=== PATIENT | female | born 1990 | race Caucasian/White ===

== ENCOUNTER → 2019-08-25 | Outpatient (CLI) | payer BC ==
[~2019-08-25] MED LIST: FLUC100 PO; HYDACE25S; PHENA200 PO; PREN-16 PO; Papaya Enzyme1 EAC1 PO; SULTRIDS PO; [UNRECOGNIZED DRUG - OTHER]
[2019-08-25 09:47] LABS: Bilirubin, Urine Neg (Neg); Blood, Urine 1+ (Neg); Glucose Qualitative, Urine Neg (Neg); Ketones, Urine 4+ (Neg); Leukocyte Esterase, Urine Neg (Neg); Nitrite, Urine Neg (Neg); Protein, Urine 1+ (Neg); Specific Gravity, Urine 1.025 (1.003-1.022); Urobilinogen, Urine NORM (Normal)
[2019-08-25 09:53] LABS: Appearance, Urine Cloudy (Clear); Bacteria Not Seen /hpf; Color, Urine Yellow (P-Yellow); Red Blood Cells, Urine 0-2 /hpf (0-2); Squamous Epithelial Cells Not Seen /hpf (Few); White Blood Cells, Urine Not Seen /hpf (0-5)
[2019-08-25 09:54] LABS: Amorphous Heavy (0-Heavy)
== END | disposition home or self-care (01) ==
LOC: LAB 06:30 → LAB SHORT 06:30
PROVIDERS: Physician Assistant
DX: N39.0 Urinary tract infection, site not specified (principal)
CPT/HCPCS: 81001; 87086

== ENCOUNTER → 2022-07-05 | Outpatient (CLI) | payer BC ==
[~2022-07-05] MED LIST changes: +OSTERA TABLET1 EACH; +THYR60 PO
[2022-07-05 11:20] LABS: BASOPHILS ABSOLUTE AUTO 0.05 K/mm3 (0.00-0.23); BASOPHILS PERCENT AUTO 1 % (0-2); EOSINOPHILS ABSOLUTE AUTO 0.07 K/mm3 (0.00-0.68); EOSINOPHILS PERCENT AUTO 1 % (0-6); Hematocrit 38.8 % (33.0-51.0); Hemoglobin 12.9 g/dL (11.5-16.0); IMMATURE GRAN ABSOLUTE AUTO 0.01 K/mm3 (0.00-0.10); IMMATURE GRAN PERCENT AUTO 0 % (0-1); LYMPHOCYTES ABSOLUTE AUTO 1.99 K/mm3 (0.84-5.20); LYMPHOCYTES PERCENT AUTO 37 % (21-46); MONOCYTES ABSOLUTE AUTO 0.43 K/mm3 (0.16-1.47); MONOCYTES PERCENT AUTO 8 % (4-13); Mean Corpuscular HGB 28.5 pg (26.0-34.0); Mean Corpuscular HGB Conc 33.2 g/dL (31.5-36.5); Mean Corpuscular Volume 86 fL (80-100); Mean Platelet Volume 9.9 fL (9.1-12.4); NEUTROPHILS ABSOLUTE AUTO 2.78 K/mm3 (1.96-9.15); NEUTROPHILS PERCENT AUTO 52 % (41-73); Platelet Count 370 K/mm3 (150-400); RDW Coefficient Variation 13.7 % (11.7-14.2); RDW Standard Deviation 42.7 fL (35.1-46.3); Red Blood Cell Count 4.52 M/mm3 (3.80-5.20); White Blood Cell Count 5.33 K/mm3 (4.00-11.30)
[2022-07-05 11:29] LABS: Albumin, Blood 4.4 g/dL (3.4-5.0); Albumin/Globulin Ratio 1.3 (0.8-1.8); Bilirubin, Total 0.4 mg/dL (0.1-1.0); Calcium, Blood 9.3 mg/dL (8.5-10.1); Creatinine, Blood 0.67 mg/dL (0.40-1.00); Globulin, Blood 3.4 g/dL (2.2-4.0); Potassium, Blood 3.8 mmol/L (3.5-5.5); Total Protein, Blood 7.8 g/dL (6.4-8.2)
== END | disposition home or self-care (01) ==
LOC: LAB SHORT 11:12 → LAB 11:12
PROVIDERS: General Practice
DX: R10.9 Unspecified abdominal pain (principal)
CPT/HCPCS: 80053; 82150; 85025

== ENCOUNTER → 2022-10-26 | Outpatient (CLI) | payer BC ==
[2022-10-26 18:38] LABS: Percent Saturation 26.1 % (15.0-50.0)
== END | disposition home or self-care (01) ==
LOC: LAB SHORT 15:40 → LAB 15:40
PROVIDERS: Internal Medicine Hematology & Oncology
DX: D50.9 Iron deficiency anemia, unspecified (principal)
CPT/HCPCS: 82728; 83540; 83550

== ENCOUNTER 2023-09-05 11:13 | Day surgery (SDC) | payer BC ==
[2023-09-05] VITALS (14 sets, daily range): BP systolic 109–124; BP diastolic 55–85
[~2023-09-05] VITALS: Ht 162.6 cm; Wt 70.6 kg
[2023-09-05] MEDS ORDERED: Armour Thyroid15 MG PO (12:44)
--- NOTE | 2023-09-05 12:49 | NUR ---
History, Chart, Medications and Allergies reviewed before start of procedure. Ambulatory in Day Surgery. Pre-Op teaching done. Pt verbalizes understanding. Patient confirms NPO status and agrees with scheduled surgery. Patient reports completing Chlorhexadine shower X2 prior to admission to hospital. Surgical site prepped with 2% Chlorhexidine cloth wipe. Lungs clear T/O to Auscultation. Patient States Post-Procedure ride home has been arranged.
--- NOTE | 2023-09-05 16:12 | NUR ---
09/05/[address] INJECTED 20ML OF BUPIVACAINE 0.5% W/EPI TO OPERATIVE SITE DURING OR CASE.
--- NOTE | 2023-09-05 18:41 | NUR ---
SHIFT SUMMARY PT A&OX4, VSS/RA, 4LAP SITES CDI, WEEKS PATENT & DRAINING, PERIPAD W/SCANT BLOOD, DENIES NAUSEA/NOT INTERESTED IN TRYING CLD AT THIS TIME, DENIES NEED FOR PAIN MED AT THIS TIME, KPAD ON. FAMILY AT BEDSIDE. REPORT TO PA DAS.
--- NOTE | 2023-09-06 04:31 | NUR ---
SHIFT SUMMARY POD 1 LAP HYSTERECTOMY PT ABLE TO REST T/O NIGHT. PAIN MANAGED PER EMAR. PT HAD SOME NAUSEA AT THE BEGINGING OF SHIFT, DUE TO IV PAIN MEDICATION, MANAGED PER EMAR. LAP SITES X4 CLOSED WITH WOUND GLUE, C/D/I. WEEKS DRAINING CLEAR YELLOW URINE. WILL BE TAKEN OUT. TOLERATING PO INTAKE. PLAN FOR D/C TODAY. NO OTHER CONCERNS AT THIS TIME. CALL LIGHT WITHIN REACH.
[2023-09-06 05:26] VITALS: BP 110/68
[2023-09-06 06:04] LABS: BASOPHILS ABSOLUTE AUTO 0.01 K/mm3 (0.00-0.23); BASOPHILS PERCENT AUTO 0 % (0-2); EOSINOPHILS PERCENT AUTO 0 % (0-6); Hematocrit 33.6 % (33.0-51.0); Hemoglobin 11.2 g/dL (11.5-16.0); IMMATURE GRAN ABSOLUTE AUTO 0.03 K/mm3 (0.00-0.10); IMMATURE GRAN PERCENT AUTO 0 % (0-1); LYMPHOCYTES ABSOLUTE AUTO 1.63 K/mm3 (0.84-5.20); LYMPHOCYTES PERCENT AUTO 17 % (21-46); MONOCYTES ABSOLUTE AUTO 0.69 K/mm3 (0.16-1.47); MONOCYTES PERCENT AUTO 7 % (4-13); Mean Corpuscular HGB 30.7 pg (26.0-34.0); Mean Corpuscular HGB Conc 33.3 g/dL (31.5-36.5); Mean Corpuscular Volume 92 fL (80-100); NEUTROPHILS PERCENT AUTO 75 % (41-73); Platelet Count 266 K/mm3 (150-400); RDW Coefficient Variation 12.6 % (11.7-14.2); RDW Standard Deviation 42.4 fL (35.1-46.3); Red Blood Cell Count 3.65 M/mm3 (3.80-5.20); White Blood Cell Count 9.56 K/mm3 (4.00-11.30)
[2023-09-06 08:05] VITALS: BP 109/69
[2023-09-06] MEDS ORDERED: HYDMOR4 PO (10:35)
[2023-09-06] MEDS ORDERED: IBUP800 PO (10:35)
[2023-09-06] MEDS ORDERED: PROM25 PO (10:36)
[2023-09-06] MEDS ORDERED: SIME80CH PO (10:36)
--- NOTE | 2023-09-06 10:56 | NUR ---
DISCHARGE NOTE: PATIENT AND PATIENTS SISTER WERE EDUCATED ON DISCHARGE INSTRUCTIONS. BOTH VERBALIZED UNDERSTANDING OF INSTRUCTIONS AND HAD NO FURTHER QUESTIONS AT THIS TIME. BOTH IVS WERE TAKEN OUT AND WNL. PAIN IS MANAGED WITH PO PAIN MEDS. HER ABD HAS X4 LAP SITES WITH WOUND GLUE THAT ARE C/D/I. DENIES NAUSEA OR VOMITING. SHE IS TOLERATING PO INTAKE AND IS VOIDING. ABD BINDER IS ALSO IN PLACE. SHE IS DRESSED AND HAS PERSONAL ITEMS IN THE ROOM GATHERED. PATIENT IS BEING WHEELCHAIRED OUT TO HER SISTERS CAR TO BE TAKEN HOME. HARD PERSCRIPTION WAS GIVEN TO SISTER WHICH SHE PUT IN HER PURSE.
--- NOTE | 2023-09-06 11:34 | NUR ---
PATIENT WAS JUST WHEELCHAIRED OUT TO HER SISTERS CAR AFTER GETTING THE REST OF HER PERSONAL ITEMS GATHERED IN THE ROOM.
== END 2023-09-06 11:30 | disposition home or self-care (01) ==
LOC: ORSCMMR 11:13 → ORD 12:45 → ORSCMMR 12:45 → SURS 17:59 → ORSCMMR 09-06 11:30
PROVIDERS: Obstetrics & Gynecology
PROC: 0UT9FZZ Resection of Uterus, Via Natural or Artificial Opening With Percutaneous Endoscopic Assistance (ICD-10-PCS; principal; 2023-09-05 13:00)
DX: N92.1 Excessive and frequent menstruation with irregular cycle (principal); N94.6 Dysmenorrhea, unspecified; N94.10 Unspecified dyspareunia; R10.2 Pelvic and perineal pain; J45.909 Unspecified asthma, uncomplicated; E03.9 Hypothyroidism, unspecified; Z79.899 Other long term (current) drug therapy
CPT/HCPCS: 58571; S2900; 36415; 84703; 85025; 86850; 86900; 86901; 88305; 88307; A9270; J0690; J1100; J1170; J1885; J2250; J2405; J2704; J3010; J7120

== ENCOUNTER → 2023-10-12 | Outpatient (CLI) | payer BC ==
[~2023-10-12] MED LIST changes: +Armour Thyroid15 MG PO; +HYDMOR4 PO; +IBUP800 PO; +PROM25 PO; +SIME80CH PO
[2023-10-16 01:40] LABS: HSV 1 SUBTYPE BY PCR Not Detected; HSV 2 SUBTYPE BY PCR Not Detected; HSV SUBTYPE SOURCE RIGHT BUTTOCK
== END ==
LOC: LAB SHORT 15:30 → LAB 15:30
PROVIDERS: Physician Assistant
DX: N76.5 Ulceration of vagina (principal)
CPT/HCPCS: 87529

== ENCOUNTER → 2023-10-17 | Outpatient (CLI) | payer BC ==
[2023-10-22 07:26] LABS: HSV 1 SUBTYPE BY PCR Not Detected; HSV 2 SUBTYPE BY PCR Not Detected; HSV SUBTYPE SOURCE SKIN
[2023-10-22 10:58] LABS: VARICELLA-ZOSTER VIRUS BY PCR Detected; VARICELLA-ZOSTER VIRUS SOURCE M6 SKIN
== END ==
LOC: LAB SHORT 17:30 → LAB 17:30 → LAB SHORT 10-18 09:13
PROVIDERS: Physician Assistant
DX: R21 Rash and other nonspecific skin eruption (principal)
CPT/HCPCS: 87070; 87077; 87186; 87205; 87529; 87798

== ENCOUNTER 2024-06-15 15:16 | Emergency (ER) | payer BC ==
[~2024-06-15] VITALS: Ht 162.6 cm; Wt 69.0 kg
[2024-06-15 16:10] VITALS: BP 131/89
[2024-06-15] MEDS ORDERED: Ketorolac Tromethamine 15mg Vial IM ONE (20:25)
[2024-06-15] MEDS ORDERED: Voltaren100 GM TOP (20:25)
[2024-06-15] MEDS ORDERED: Robaxin750 MG PO (20:25)
== END 2024-06-15 20:41 | disposition home or self-care (01) ==
LOC: ER 15:16
DX: F07.81 Postconcussional syndrome (principal); S09.90XA Unspecified injury of head, initial encounter; S16.1XXA Strain of muscle, fascia and tendon at neck level, initial encounter; W22.8XXA Striking against or struck by other objects, initial encounter; E03.9 Hypothyroidism, unspecified; I10 Essential (primary) hypertension; Z88.5 Allergy status to narcotic agent; Z91.048 Other nonmedicinal substance allergy status; Z79.899 Other long term (current) drug therapy; Z79.890 Hormone replacement therapy
CPT/HCPCS: 70450; J1885

== ENCOUNTER → 2025-01-26 | Outpatient (CLI) | payer BC ==
[~2025-01-26] MED LIST changes: +Robaxin750 MG PO; +Voltaren100 GM TOP
[2025-01-26 13:21] LABS: Creatinine Urine 96.2 mg/dL (27.00-270.00)
[2025-01-29 05:47] LABS: CORTISOL,U FREE - RATIO TO CRT 13.96 ug/g CRT; CORTISOL,URINE FREE - PER 24H 18.3 ug/d (<=45.0); CREATININE,URINE - PER 24H 1313 mg/d (700-1600); CREATININE,URINE - PER VOLUME 101 mg/dL; HOURS COLLECTED 24 hr; TOTAL VOLUME 1300 mL
== END ==
LOC: LAB SHORT 09:38 → LAB 09:38 → LAB FUT 01-21 10:40
PROVIDERS: Internal Medicine
DX: C73 Malignant neoplasm of thyroid gland (principal); E89.0 Postprocedural hypothyroidism; R63.5 Abnormal weight gain
CPT/HCPCS: 81050; 82530; 82570

== ENCOUNTER → 2025-06-18 | Outpatient (CLI) | payer BC ==
[2025-06-18 13:19] LABS: BASOPHILS ABSOLUTE AUTO 0.02 K/mm3 (0.00-0.23); BASOPHILS PERCENT AUTO 0 % (0-2); EOSINOPHILS ABSOLUTE AUTO 0.05 K/mm3 (0.00-0.68); EOSINOPHILS PERCENT AUTO 1 % (0-6); Hematocrit 39.0 % (33.0-51.0); Hemoglobin 13.4 g/dL (11.5-16.0); IMMATURE GRAN ABSOLUTE AUTO 0.01 K/mm3 (0.00-0.10); IMMATURE GRAN PERCENT AUTO 0 % (0-1); LYMPHOCYTES ABSOLUTE AUTO 1.80 K/mm3 (0.84-5.20); LYMPHOCYTES PERCENT AUTO 29 % (21-46); MONOCYTES ABSOLUTE AUTO 0.39 K/mm3 (0.16-1.47); MONOCYTES PERCENT AUTO 6 % (4-13); Mean Corpuscular HGB Conc 34.4 g/dL (31.5-36.5); Mean Corpuscular Volume 91 fL (80-100); NEUTROPHILS ABSOLUTE AUTO 4.02 K/mm3 (1.96-9.15); NEUTROPHILS PERCENT AUTO 64 % (41-73); NRBC ABSOLUTE 0.00 K/mm3 (0.00-0.02); NRBC Auto 0.0 /100 WBC (0.0-0.2); Platelet Count 329 K/mm3 (150-400); RDW Coefficient Variation 12.2 % (11.7-14.2); RDW Standard Deviation 40.3 fL (35.1-46.3)
[2025-06-18 13:32] LABS: Alanine Aminotransfer (ALT/SGP 25.0 U/L (12-78); Albumin, Blood 4.3 g/dL (3.4-5.0); Albumin/Globulin Ratio 1.3 (0.8-1.8); Anion Gap 10.0 mmol/L (3-11); Aspartate Aminotrans (AST/SGOT 19.0 U/L (12-37); Bilirubin, Total 0.5 mg/dL (0.1-1.0); Blood Urea Nitrogen 8.0 mg/dL (8-24); CO2, Blood 30.0 mmol/L (21-32); Calcium, Blood 9.6 mg/dL (8.5-10.1); Chloride, Blood 104.0 mmol/L (98-108); Creatinine, Blood 0.65 mg/dL (0.40-1.00); Globulin, Blood 3.4 g/dL (2.2-4.0); Glucose, Blood 101.0 mg/dL (70-99); Potassium, Blood 3.6 mmol/L (3.5-5.5); Sodium, Blood 140.0 mmol/L (136-145); Total Protein, Blood 7.7 g/dL (6.4-8.2)
== END ==
LOC: LAB SHORT 13:15 → LAB 13:15
DX: R10.11 Right upper quadrant pain (principal)
CPT/HCPCS: 80053; 83690; 85025

== ENCOUNTER 2025-08-25 08:44 | Day surgery (SDC) | payer BC ==
[~2025-08-25] VITALS: Ht 162.6 cm; Wt 72.3 kg
[2025-08-25] MEDS ORDERED: Midazolam HCL 1 MG/ML 5MLVIAL ONE (10:34)
[2025-08-25 11:19] VITALS: BP 92/50
== END 2025-08-25 11:43 | disposition home or self-care (01) ==
LOC: ORSCSDS 08:44
PROVIDERS: Specialist
PROC: 0DBE8ZX Excision of Large Intestine, Via Natural or Artificial Opening Endoscopic, Diagnostic (ICD-10-PCS; principal; 2025-08-25 10:15)
DX: R19.4 Change in bowel habit (principal); K64.4 Residual hemorrhoidal skin tags; K64.8 Other hemorrhoids; Z86.0101 Personal history of adenomatous and serrated colon polyps; Z85.850 Personal history of malignant neoplasm of thyroid
CPT/HCPCS: 88305; J2250; J2704; J7120